=== PATIENT | male | born 1970 | race Caucasian/White ===

== ENCOUNTER → 2017-01-04 | Outpatient (CLI) | payer BC ==
[~2017-01-04] MED LIST: ACET-1256 PO; AMLO-114 PO; CARV12.52 PO; CIPR-255 PO; FEBU40TA PO; OXYC-57 PO; PHEN-775 PO; TAMS0.4C38 PO; TRAM37.52 PO
--- NOTE | 2017-01-04 14:34 | DIAGNOSTIC IMAGING REPORT ---
KUB HISTORY: Back pain. Renal stones. N19 Renal [id number] COMPARISON: None. FINDINGS: The bowel gas pattern is unremarkable. There are no dilated loops of small bowel to suggest an obstruction. Multiple bilateral renal calculi, left greater than right. Dominant stone within the upper pole the left kidney measures 7 mm. No ureteral or bladder calculi. Cholecystectomy. No pneumoperitoneum or pneumatosis. IMPRESSION: Bilateral nephrolithiasis, left greater than right. No ureteral calculi. Electronically signed by: Jv Austin M.D. 01/04/2017 2:32 PM Dictated Date/Time: 01/04/2017 2:30 PM
== END | disposition home or self-care (01) ==
LOC: C.RAD 14:10
PROVIDERS: ATTEND Urology
DX: N19 Unspecified kidney failure (principal); N20.0 Calculus of kidney

== ENCOUNTER → 2017-01-14 | Day surgery (SDC) | payer BC ==
[2017-01-06 08:38] VITALS: BMI 40.0
[2017-01-07 11:28] VITALS: Ht 170.2 cm; Wt 123.6 kg
--- NOTE | 2017-01-07 11:37 | PAT Medication Instructions ---
Service Date Jan 07, 2017. Current Home Medication List Amlodipine (Norvasc), 10 MG PO QPM Carvedilol (Coreg), 1 TAB PO BID Febuxostat (Uloric), 1 TAB PO QPM Medication Instructions For Your Scheduled Surgery - Take the following medications the morning of surgery with a sip of water OTHERWISE NOTHING TO EAT OR DRINK AFTER MIDNIGHT: Carvedilol (Coreg), 1 TAB PO BID - Take the following medications as scheduled the night before surgery: Amlodipine (Norvasc), 10 MG PO QPM Carvedilol (Coreg), 1 TAB PO BID Febuxostat (Uloric), 1 TAB PO QPM If you have any questions please call us at [phone] or [phone] or [phone]
--- NOTE | 2017-01-07 12:29 | DIAGNOSTIC IMAGING REPORT ---
CHEST PREADMISSION(PA/LAT) CLINICAL HISTORY: Preoperative chest COMPARISON STUDY: No previous studies for comparison. FINDINGS: The cardiac and mediastinal contours are normal. There is no evidence of focal pulmonary consolidation. There is no evidence of failure. No pleural effusions are visualized.[ IMPRESSION: No active disease in the chest. Electronically signed by: Brandon Leahy M.D. 01/07/2017 12:27 PM Dictated Date/Time: 01/07/2017 12:27 PM
[2017-01-07 12:42] LABS: HEMATOCRIT 38.3 % (42-52); MEAN CELL VOLUME 89.7 fL (80-100); MEAN CORPUSCULAR HEMOGLOBIN 29.3 pg (25-34); MEAN CORPUSCULAR HGB CONC 32.6 g/dl (32-36); MEAN PLATELET VOLUME 10.9 fL (7.4-10.4); PLATELET COUNT 231 K/uL (130-400); RED BLOOD COUNT 4.27 M/uL (4.7-6.1); WHITE BLOOD COUNT 14.66 K/uL (4.8-10.8)
[2017-01-07 12:48] LABS: URINE APPEARANCE CLEAR (CLEAR); URINE BILIRUBIN NEG (NEG); URINE COLOR DK YELLOW; URINE NITRITE NEG (NEG); URINE PH 5.5 (4.5-7.5); URINE SPECIFIC GRAVITY 1.022 (1.000-1.030); UROBILINOGEN NEG (NEG)
[2017-01-07 12:58] LABS: MANUAL MICROSCOPIC REQUIRED? NO; REVIEW REQ? NO
[2017-01-07 13:02] LABS: BUN/CREATININE RATIO 12.7 (10-20); CREATININE 1.4 mg/dl (0.60-1.40); POTASSIUM 3.9 mmol/L (3.5-5.1)
[2017-01-07 13:04] LABS: CALCIUM 9.2 mg/dl (8.5-10.1)
--- NOTE | 2017-01-13 14:28 | DIAGNOSTIC IMAGING REPORT ---
KUB CLINICAL HISTORY: Nephrolithiasis. FINDINGS: 2 AP supine abdominal radiographs are compared to study dated 01/04/2017 and correlated with abdominal CT dated 10/31/2016. There is a nonobstructed abdominal bowel gas pattern noting moderate colonic fecal retention. There are numerous bilateral nonobstructing renal calculi. The largest is on the left and measures up to 8 mm. There is no clear evidence of ureteral calculus. Cholecystectomy clips are identified in the right upper quadrant. The skeletal structures appear osteopenic. Degenerative change is noted in the lumbosacral spine and hips. IMPRESSION: There are numerous bilateral nonobstructing renal calculi, overall similar in appearance to the 01/04/2017 examination. Electronically signed by: Kale Rdz M.D. 01/13/2017 2:27 PM Dictated Date/Time: 01/13/2017 2:25 PM
[~2017-01-14] VITALS: Ht 170.2 cm; Wt 123.6 kg
[~2017-01-14] MED LIST changes: +CIPROFLOXACIN 400MG / D5W IV SCH; +DEXAMETHASONE SOD INJ 4 MG/ML VIAL ONE; +FENTANYL CITRATE INJ 50 MCG/1 ML 2 ML VIAL ONE; +KETOROLAC TROMETHAMINE 30 MG/ML VIAL ONE; +LACTATED RINGER'S 1000ML 1,000 ML IV SCH; +LIDOCAINE HCL 2% 2 ML VIAL (20MG/ML) ONE; +MIDAZOLAM HCL 1 MG/ML 2ML VIAL ONE; +ONDANSETRON INJ 2 MG/ML 2 ML VIAL ONE; +OXYCODONE/ACETAMINOPHEN 5-325 TAB PO PRN; +PROPOFOL IV EMULSION 10 MG/ML 20 ML VIAL IV ONE
--- NOTE | 2017-01-14 10:34 | History & Physical Bridge Note ---
H&P Re-Evaluation Bridge Note: I have examined the patient, reviewed the History & Physical and in the interval since the performance of the History & Physical I have noted the following changes of clinical significance: Left side target today
--- NOTE | 2017-01-14 11:48 | Discharge Instructions ---
Discharge Instructions Date of Service Jan 14, 2017. Admission Reason for Admission: Stones Discharge Discharge Diagnosis / Problem: L renal stones s/p ESWL Discharge Goals Goal(s): Decrease discomfort, Improve disease control, Therapeutic intervention Activity Recommendations Activity Limitations: as noted below Lifting Limitations: no more than 25 pounds, gradually increase as tolerated Exercise/Sports Limitations: rest today, gradually increase as tolerated May Resume Sexual Activity: when tolerated Shower/Bathe: no limitations Driving or Machine Use: resume 1 day after discharge . Instructions / Follow-Up Instructions / Follow-Up Strain all urine as instructed KUB Xray prior to follow-up visit as scheduled Discharge Diet Recommended Diet: Regular Diet (good fluid) Procedures Procedures Performed: Left ESWL Pending Studies Studies pending at discharge: no Medical Emergencies . Who to Call and When: Medical Emergencies: If at any time you feel your situation is an emergency, please call 911 immediately. . Non-Emergent Contact Non-Emergency issues call your: Urologist Call Non-Emergent contact if: you have a fever, temperature is above 101, your pain is not controlled, your pain is worsening, your pain is unusual for you, your pain is concerning you, you have any medication questions . . "Provider Documentation" section prepared by Sadi Vanessa. . VTE Core Measure Inpt VTE Proph given/why not?: [place]CD's [place] Drug Monitoring Program Search Results: patient reviewed within database, see additional documentation (several Rx for narcotics, last in Oct 2016)
--- NOTE | 2017-01-14 12:06 | [facility] Post Operative Brief Note ---
Immediate Operative Summary Operative Date Jan 14, 2017. Pre-Operative Diagnosis Left Renal Calculi Post-Operative Diagnosis Same Procedure(s) Performed Left ESWL Surgeon Dr. Bita Vanessa Continuity Coordinator Surgeon(s) None Estimated Blood Loss 0 mL Findings Good stone fragmentation Specimens None Drains NA Anesthesia [facility] Complication(s) None Disposition Recovery Room / PACU
--- NOTE | 2017-01-14 12:20 | OPERATIVE REPORT ---
DATE OF OPERATION: 01/14/2017 PREOPERATIVE DIAGNOSIS: Bilateral renal stones, left greater than right. POSTOPERATIVE DIAGNOSIS: Same. PROCEDURE: Left-sided renal extracorporeal shockwave lithotripsy. SURGEON: Dr. Sadi Vanessa. PROTOZOOLOGY TEACHER: None. ANESTHESIA: General anesthesia with laryngeal mask. COMPLICATIONS: None. FINDINGS: Bilateral renal stones present, larger stones on the left upper pole targeted up to 8 cm in size. Good stone fragmentation on fluoroscopy. DETAILS OF PROCEDURE: The patient was brought to the litho suite. He was correctly identified and the stone was visualized on his most recent x-rays. After the correct time out was performed the patient was positioned over the therapy head. An adequate level of anesthesia was administered. The extracorporeal shockwave lithotripsy treatment was then commenced. Please see the [facility] sheet for complete treatment summary. After completion of the procedure the patient was taken to the recovery room in stable condition. I attest to the content of the Intraoperative Record and any orders documented therein. Any exceptio ns are noted below.
[2017-01-14 12:46] VITALS: TEMP 36.6
--- NOTE | 2017-01-14 13:03 | Anesthesia Progress Nt - [facility] ---
Anesthesia Post Op Note Date & Time Jan 14, 2017 at 13:03 Vital Signs Pain Intensity: 0 Vital Signs Past 12 Hours Date Time Temp Pulse Resp B/P Pulse Ox O2 Delivery O2 Flow Rate FiO2 01/14/17 12:46 36.6 71 16 137/93 96 Room Air 01/14/17 12:38 76 17 94 01/14/17 12:38 77 17 01/14/17 12:35 37.0 76 13 144/86 95 Room Air 01/14/17 12:35 144/86 01/14/17 12:33 78 17 93 01/14/17 12:33 78 17 01/14/17 12:30 146/88 01/14/17 12:28 79 12 97 01/14/17 12:28 80 12 01/14/17 12:25 134/83 01/14/17 12:23 67 12 99 01/14/17 12:23 68 12 01/14/17 12:19 113/78 01/14/17 12:18 67 4 99 01/14/17 12:18 67 4 01/14/17 12:14 130/85 01/14/17 12:13 72 17 01/14/17 12:13 36.6 72 16 135/83 99 Diffusion Mask 6 01/14/17 12:13 73 17 135/83 98 01/14/17 09:12 37.0 82 18 145/97 96 Room Air Notes Mental Status: alert / awake / arousable, participated in evaluation Pt Amnestic to Procedure: Yes Nausea / Vomiting: adequately controlled Pain: adequately controlled Airway Patency, RR, SpO2: stable & adequate BP & HR: stable & adequate Hydration State: stable & adequate Anesthetic Complications: no major complications apparent
[2017-01-14 13:04] VITALS: BP 145/89; PULSE 73; O2SAT 97
== END | disposition home or self-care (01) ==
LOC: X.SURG 09:06
PROVIDERS: ATTEND Urology
DX: N20.0 Calculus of kidney (principal); N19 Unspecified kidney failure; I10 Essential (primary) hypertension; M10.9 Gout, unspecified; M19.90 Unspecified osteoarthritis, unspecified site; Z79.899 Other long term (current) drug therapy

== ENCOUNTER → 2017-01-26 | Outpatient (CLI) | payer BC ==
[~2017-01-26] MED LIST changes: -CIPROFLOXACIN 400MG / D5W IV SCH; -DEXAMETHASONE SOD INJ 4 MG/ML VIAL ONE; -FENTANYL CITRATE INJ 50 MCG/1 ML 2 ML VIAL ONE; -KETOROLAC TROMETHAMINE 30 MG/ML VIAL ONE; -LACTATED RINGER'S 1000ML 1,000 ML IV SCH; -LIDOCAINE HCL 2% 2 ML VIAL (20MG/ML) ONE; -MIDAZOLAM HCL 1 MG/ML 2ML VIAL ONE; -ONDANSETRON INJ 2 MG/ML 2 ML VIAL ONE; -OXYCODONE/ACETAMINOPHEN 5-325 TAB PO PRN; -PROPOFOL IV EMULSION 10 MG/ML 20 ML VIAL IV ONE
--- NOTE | 2017-01-26 12:01 | DIAGNOSTIC IMAGING REPORT ---
KUB CLINICAL HISTORY: Nephrolithiasis. COMPARISON STUDY: KUB January 13, 2017. FINDINGS: Numerous bilateral renal calculi are noted, the largest of which is a 7 mm left upper pole calculus. These appear similar to prior exam. No ureteral calculi are identified. Bowel gas pattern is normal. IMPRESSION: No significant change in bilateral nephrolithiasis. No ureteral calculi identified. Electronically signed by: Claudio Tilley M.D. 01/26/2017 12:00 PM Dictated Date/Time: 01/26/2017 11:58 AM
== END | disposition home or self-care (01) ==
LOC: C.RAD 11:17
PROVIDERS: ATTEND Urology
DX: N20.0 Calculus of kidney (principal)

== ENCOUNTER 2017-02-21 12:41 | Day surgery (SDC) | payer BC ==
[2017-01-31 13:06] VITALS: BMI 40.0
[2017-02-10 12:01] LABS: BASO % 0.3 %; BASO ABS # 0.03 K/uL (0-0.2); COMPLETE YES; EOS % 1.3 %; HEMATOCRIT 41.7 % (42-52); IG% 1.1 %; LYMPH % 26.8 %; LYMPH ABS # 2.77 K/uL (1.2-3.4); MEAN CELL VOLUME 90.5 fL (80-100); MEAN CORPUSCULAR HEMOGLOBIN 30.2 pg (25-34); MEAN CORPUSCULAR HGB CONC 33.3 g/dl (32-36); MEAN PLATELET VOLUME 11.2 fL (7.4-10.4); MONO % 8.2 %; NEUT % 62.3 %; PLATELET COUNT 237 K/uL (130-400); RED BLOOD COUNT 4.61 M/uL (4.7-6.1); WHITE BLOOD COUNT 10.32 K/uL (4.8-10.8)
[2017-02-10 12:11] LABS: BUN/CREATININE RATIO 9.5 (10-20); CREATININE 1.3 mg/dl (0.60-1.40)
[2017-02-10 12:12] LABS: CALCIUM 9.1 mg/dl (8.5-10.1)
[2017-02-10 12:15] LABS: URINE APPEARANCE CLEAR (CLEAR); URINE BILIRUBIN NEG (NEG); URINE COLOR YELLOW; URINE NITRITE NEG (NEG); URINE PH 6.5 (4.5-7.5); URINE SPECIFIC GRAVITY 1.015 (1.000-1.030); UROBILINOGEN NEG (NEG)
[2017-02-10 12:25] LABS: MANUAL MICROSCOPIC REQUIRED? NO; REVIEW REQ? NO
[~2017-02-21] VITALS: Ht 170.2 cm; Wt 118.2 kg
[~2017-02-21 12:41] MED LIST changes: -CIPR-255 PO; +CIPROFLOXACIN / D5W 400 MG IV SCH; +LACTATED RINGER'S 1000ML 1,000 ML IV SCH; -OXYC-57 PO; -PHEN-775 PO; -TRAM37.52 PO
[2017-02-21 12:55] VITALS: BP 149/83; PULSE 70; TEMP 36.5; O2SAT 92; Ht 170.2 cm; Wt 118.2 kg
--- NOTE | 2017-02-21 14:09 | History & Physical Bridge Note ---
H&P Re-Evaluation Bridge Note: I have examined the patient, reviewed the History & Physical and in the interval since the performance of the History & Physical I have noted the following changes of clinical significance: No changes noted
[2017-02-21] MEDS ORDERED: FENTANYL CITRATE INJ 50 MCG/1 ML 2 ML VIAL ONE ×2 (15:06→16:17)
[2017-02-21] MEDS ORDERED: MIDAZOLAM HCL 1 MG/ML 2ML VIAL ONE (15:06)
[2017-02-21] MEDS ORDERED: CONRAY 30% 150ML BOTTLE ONE (15:40)
[2017-02-21] MEDS ORDERED: EpHEDrine SULFATE INJ 50 MG/ML AMP ONE (16:11)
[2017-02-21] MEDS ORDERED: PROPOFOL IV EMULSION 10 MG/ML 20 ML VIAL IV ONE (16:12)
[2017-02-21] MEDS ORDERED: DEXAMETHASONE SOD INJ 4 MG/ML VIAL ONE (16:12)
[2017-02-21] MEDS ORDERED: ONDANSETRON INJ 2 MG/ML 2 ML VIAL ONE (16:12)
[2017-02-21] MEDS ORDERED: ATROPINE SULFATE 0.1 MG/ML 5ML SYR IV PRN (16:15)
[2017-02-21] MEDS ORDERED: MEPERIDINE HCL 25 MG/ML CARP IV PRN (16:15)
[2017-02-21] MEDS ORDERED: LABETALOL HCL IV 5 MG/ML 20ML IV PRN (16:15)
[2017-02-21] MEDS ORDERED: EpHEDrine SULFATE INJ 50 MG/ML AMP IV PRN (16:15)
[2017-02-21] MEDS ORDERED: ONDANSETRON INJ 2 MG/ML 2 ML VIAL IV PRN (16:15)
[2017-02-21] MEDS ORDERED: TRAM37.52 PO (17:11)
[2017-02-21] MEDS ORDERED: PHEN-775 PO (17:11)
[2017-02-21] MEDS ORDERED: CIPR-255 PO (17:11)
--- NOTE | 2017-02-21 17:13 | Discharge Instructions ---
Discharge Instructions Date of Service Feb 21, 2017. Admission Reason for Admission: Left Renal Stone Discharge Discharge Diagnosis / Problem: L renal stones s/p uscope, laser litho, stent Discharge Goals Goal(s): Decrease discomfort, Improve function, Improve disease control, Therapeutic intervention Activity Recommendations Activity Limitations: as noted below Lifting Limitations: no more than 25 pounds, gradually increase as tolerated Exercise/Sports Limitations: rest today, gradually increase as tolerated May Resume Sexual Activity: after follow-up appointment Shower/Bathe: no limitations Driving or Machine Use: resume 1 day after discharge . Instructions / Follow-Up Instructions / Follow-Up KUB Xray prior to follow-up visit in office as scheduled Discharge Diet Recommended Diet: Regular Diet (good fluid intake) Procedures Procedures Performed: Cystoscopy, left retrograde pyelography, left flexible ureteroscopy, basket stone extraction, left laser lithotripsy, placement of left ureteral stent Pending Studies Studies pending at discharge: yes List of pending studies: Stone analysis Medical Emergencies . Who to Call and When: Medical Emergencies: If at any time you feel your situation is an emergency, please call 911 immediately. . Non-Emergent Contact Non-Emergency issues call your: Urologist Call Non-Emergent contact if: you have a fever, temperature is above 101, your pain is not controlled, your pain is worsening, your pain is unusual for you, your pain is concerning you, wound has increased drainage, wound has increased redness, wound has increased pain, you have any medication questions . . "Provider Documentation" section prepared by Sadi Vanessa. . VTE Core Measure Inpt VTE Proph given/why not?: [place]CD[place] Drug Monitoring Program Search Results: patient reviewed within database, see additional documentation (last Rx by myself for stone, previously tramadol in Oct 2016)
[2017-02-21] MEDS ORDERED: PHENAZOPYRIDINE HCL 200 MG TAB PO PRN (17:15)
[2017-02-21] MEDS ORDERED: TRAMADOL HCL 50 MG TAB PO PRN (17:15)
[2017-02-21] MEDS ORDERED: LABETALOL HCL IV 5 MG/ML 20ML IV ONE (17:16)
--- NOTE | 2017-02-21 17:16 | DIAGNOSTIC IMAGING REPORT ---
Stent placement RETROGRADE INCLUDES KUB CLINICAL HISTORY: LT CYSTO/LASER/STENT TECHNIQUE: Image intensifier COMPARISON STUDY: None FINDINGS: Image intensifier was used intraoperatively for laser lithotripsy and stent placement IMPRESSION: Laser lithotripsy and stent placement. Electronically signed by: Domenic Dickerson M.D. 02/21/2017 5:15 PM Dictated Date/Time: 02/21/2017 5:14 PM
--- NOTE | 2017-02-21 17:16 | [facility] Post Operative Brief Note ---
Immediate Operative Summary Operative Date Feb 21, 2017. Pre-Operative Diagnosis Left renal stones Post-Operative Diagnosis Same Procedure(s) Performed Cystoscopy, left retrograde pyelography, left flexible ureteroscopy, basket stone extraction, left laser lithotripsy, placement of left ureteral stent Surgeon Dr. Bita Vanessa Spine Surgeon Surgeon(s) NA Estimated Blood Loss 10 ml Findings No significant residual stones, no ureteral injury, stent in good position on fluoro Specimens A. left renal stones for chemical analysis Drains 6 fr 26 cm L loop stent Anesthesia [facility] Complication(s) None Disposition Recovery Room / PACU
[2017-02-21] MEDS: FENTANYL CITRATE INJ 50 MCG/1 ML 2 ML VIAL IV PRN ×3 (17:30→17:40)
[2017-02-21] MEDS: HYDROmorphone INJ 1 MG/ML SYR IV PRN ×8 (17:45→18:20)
[2017-02-21 18:36] VITALS: BP 152/93; PULSE 77; TEMP 36.6; O2SAT 98
[2017-02-21] MEDS ORDERED: PHENAZOPYRIDINE HCL 200 MG TAB PO ONE (18:46)
[2017-02-21 19:05] VITALS: BP 199/110; PULSE 74; O2SAT 98
--- NOTE | 2017-02-21 19:14 | Anesthesiology Progress Note ---
Anesthesia Post Op Note Date & Time Feb 21, 2017 at 19:14 Vital Signs Pain Intensity: 6 Vital Signs Past 12 Hours Date Time Temp Pulse Resp B/P (MAP) Pulse Ox O2 Delivery O2 Flow Rate FiO2 02/21/17 18:30 36.5 76 16 149/93 98 Room Air 02/21/17 18:20 72 16 146/94 98 Room Air 02/21/17 18:10 68 14 151/98 98 Room Air 02/21/17 18:00 69 14 154/99 96 Room Air 02/21/17 17:50 71 14 184/115 96 Room Air 02/21/17 17:40 69 14 166/109 96 Room Air 02/21/17 17:30 66 14 176/111 98 Room Air 02/21/17 17:20 68 14 163/103 100 Mask 10 02/21/17 17:10 65 17 151/100 100 Mask 10 02/21/17 17:02 36.5 68 18 153/109 100 Mask 10 02/21/17 12:55 36.5 70 18 149/83 (105) 92 Room Air Notes Mental Status: alert / awake / arousable, participated in evaluation Pt Amnestic to Procedure: Yes Nausea / Vomiting: adequately controlled Pain: adequately controlled Airway Patency, RR, SpO2: stable & adequate BP & HR: stable & adequate Hydration State: stable & adequate Anesthetic Complications: no major complications apparent
[2017-02-21] MEDS ORDERED: CIPROFLOXACIN 500MG HOME PACK PO ONE (19:15)
[2017-02-21] MEDS ORDERED: KETOROLAC TROMETHAMINE 30 MG/ML VIAL ONE (19:29)
[2017-02-21 19:35] VITALS: BP 194/118
[2017-02-21] MEDS ORDERED: NURSING VERBAL MED ORDER ONE (19:45)
[2017-02-21] MEDS ORDERED: HYDROmorphone INJ 0.5 MG/0.5 ML SYR ONE (19:50)
[2017-02-21] MEDS ORDERED: BELLADONNA/OPIUM SUPP 60 MG SUPP PR SCH (20:10)
[2017-02-21 20:20] VITALS: BP 173/97; PULSE 75; O2SAT 98
[2017-02-21 20:42] VITALS: BP 186/98; PULSE 82; TEMP 36.6; O2SAT 96
--- NOTE | 2017-02-21 20:57 | OPERATIVE REPORT ---
DATE OF OPERATION: 02/21/2017 PREOPERATIVE DIAGNOSIS: Left renal stones. POSTOPERATIVE DIAGNOSIS: Same. PROCEDURE: Cystoscopy, left retrograde pyelography, left flexible ureteroscopy with laser lithotripsy, basket stone extraction and left ureteral stent placement. SURGEON: Dr. Sadi Vanessa. CERTIFIED SURGICAL TECH/FIRST ASSISTANT: None. ANESTHESIA: General anesthesia with laryngeal mask. COMPLICATIONS: None. ESTIMATED BLOOD LOSS: Minimal. DRAINS LEFT IN PLACE: Include a 6-Italian 26 cm left-sided loop stent. SPECIMENS SENT TO PATHOLOGY: Left renal stones for chemical analysis. COMPLICATIONS: None. FINDINGS: No significant residual stones after completion, no ureteral or renal pelvis injury, stent in good position on completion of case. BRIEF HISTORY: Mr. Vincent is a pleasant 47-year-old male whom I have seen previously for history of stone disease. He has undergone lithotripsy without significant success. He continues to have disease and suffers from significant sequelae including a history of renal insufficiency and sepsis when the stones pass. Seeing his numerous stones on his left hand side, he has decided to undergo elective ureteroscopy to manage his disease. Please see H&P for further details. Intravenous ciprofloxacin was provided for antibiotic coverage and SCDs provided for DVT prophylaxis. Informed consent reviewed with the patient and his family preoperatively today. PROCEDURE: The patient was properly identified and brought to the operative suite after identification of appropriate consent on the chart. General anesthesia with laryngeal mask was initiated. The patient was prepped and draped in standard fashion for this procedure. cad cam programmer-out procedure was followed. A 22-Italian rigid cystoscope was passed into the bladder under direct visualization demonstrating normal urethra, slightly elevated bladder neck with minimal lateral lobe hypertrophy. Bladder was surveyed in its entirety demonstrating no intravesical lesions, no papillary masses, calculi or mucosal abnormalities. Ureters were noted to be effluxing clear, yellow urine on both sides. Grade 1-2 trabeculation was present. Left-sided ureteral orifice was cannulated using an open-ended catheter, and gentle retrograde pyelography was performed demonstrating normal ureter and collecting system. Stones within the left renal pelvis were appreciated on clipper automatic imaging. Sensor tip wire was advanced up to the level of the renal pelvis, kept until the end of the case as a safety wire. An Amplatz Super Stiff wire was advanced as a working wire up to the left renal pelvis without difficulties or resistance. A 12/14 35 cm ureteral access sheath was advanced into the mid ureter without difficulties. This was followed by a flexible ureteroscope which was placed within the renal pelvis. Several stones consistent with the patient's preoperative imaging were appreciated. Several of the stones were smaller, simply adherent to the papilla. These were able to be removed intact using an NGage basket without resistance at the level of the ureter. However, the larger stone fragments were broken into smaller pieces using a 200 micron laser both in traditional settings and in the lower pole in a dusting setting. After this was complete, these pieces were also grasped and brought out via the access sheath. The vast majority of the pieces within the kidney were removed save for some small mobile fragments which were too challenging to grasp. On completion of the case, complete exit ureteroscopy was performed including removal of the ureteral access sheath demonstrating no mucosal or ureteral injuries of any kind throughout the entire length of the ureter. After this was complete, the cystoscope was backloaded over the safety wire, and a 6-Italian 26 cm loop stent was advanced up to the level of the left renal pelvis. The stent was noted to have its tip within the lower pole, but lengthy redundant loops were present within the bladder, making stent dislodgement unlikely per my opinion. Good hydronephrotic drip was appreciated from the site after completion of the case. Bladder was drained and cystoscope was removed, anesthesia was reversed, and the patient was transferred to Recovery Room in stable condition. FOLLOWUP CARE: The patient will be discharged home with a prescription for tramadol, ciprofloxacin and Pyridium. Postoperative appointment for cystoscopy and stent removal with KUB is confirmed. The patient is instructed to contact our service should he note any fevers, chills, nausea, vomiting or other significant difficulties in the postoperative period. I attest to the content of the Intraoperative Record and any orders documented therein. Any exception s are noted below.
== END 2017-02-21 20:48 | disposition home or self-care (01) ==
LOC: C.ACU 12:41
PROVIDERS: ATTEND Urology
DX: N20.0 Calculus of kidney (principal); N19 Unspecified kidney failure; M19.90 Unspecified osteoarthritis, unspecified site; I10 Essential (primary) hypertension; M10.9 Gout, unspecified; Z90.49 Acquired absence of other specified parts of digestive tract; Z83.3 Family history of diabetes mellitus; Z84.1 Family history of disorders of kidney and ureter; Z82.49 Family history of ischemic heart disease and other diseases of the circulatory system

== ENCOUNTER → 2017-03-02 | Outpatient (CLI) | payer BC ==
[~2017-03-02] MED LIST changes: +CIPR-255 PO; -CIPROFLOXACIN / D5W 400 MG IV SCH; -LACTATED RINGER'S 1000ML 1,000 ML IV SCH; +PHEN-775 PO
--- NOTE | 2017-03-02 13:35 | DIAGNOSTIC IMAGING REPORT ---
KUB HISTORY: N20.0 Calculus of [id number] COMPARISON: KUB 01/26/2017. FINDINGS: The bowel gas pattern is unremarkable. There are no dilated loops of small bowel to suggest an obstruction. Interval placement of a left ureteral stent. This appears to be in good position. No ureteral or bladder stones identified. Multiple bilateral renal calculi. Dominant stone within the right kidney measures 7 mm and dominant stone within the lower pole the left kidney measures 7 mm.. Cholecystectomy. No pneumoperitoneum or pneumatosis. IMPRESSION: 1. Bilateral nephrolithiasis. 2. Left ureteral stent appears be in good position. 3. No ureteral calculi. Electronically signed by: Jv Austin M.D. 03/02/2017 1:34 PM Dictated Date/Time: 03/02/2017 1:32 PM
== END | disposition home or self-care (01) ==
LOC: C.RAD 13:17
PROVIDERS: ATTEND Urology
DX: N20.0 Calculus of kidney (principal)